=== PATIENT | female | born 1960 | race Caucasian/White ===

== ENCOUNTER 2017-03-24 12:34 | Observation (INO) | payer OTHER ==
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
[2017-03-24] MEDS ORDERED: ONDANSETRON 4 MG/2 ML VIAL IVP ONE ×2 (12:58→13:35)
[2017-03-24] MEDS ORDERED: fentaNYL 100 MCG/2 ML INJ IVP ONE (12:58)
[2017-03-24] MEDS ORDERED: NS 1,000 ML IV ONE ×2 (12:58→13:09)
[2017-03-24] MEDS ORDERED: fentaNYL 100 MCG/2 ML INJ ONE (12:59)
[2017-03-24] MEDS ORDERED: ONDANSETRON 4 MG/2 ML VIAL ONE (12:59)
[2017-03-24 13:52] LABS: % IMMATURE GRANULYOCYTES 1.8 % (0.0-1.1); ABSOLUTE IMMATURE GRANULOCYTES 0.29 10^3/uL (0.00-0.10); ADD DIFF? NO; ADD MORPH? NO; ADD SCAN? NO; ATYPICAL LYMPHOCYTE FLAG 0 (0-99); FRAGMENT RBC FLAG 0 (0-99); HEMATOCRIT 34.3 % (38.0-47.0); HEMOGLOBIN 11.5 g/dL (12.6-16.3); LEFT SHIFT FLG 10 (0-99); LIPEMIA HEMOLYSIS FLAG 80 (0-99); MEAN CELL HEMOGLOBIN 29.9 pg (27.9-34.1); MEAN CELL HEMOGLOBIN CONCENTR. 33.5 g/dL (32.4-36.7); MEAN CELL VOLUME 89.3 fL (81.5-99.8); MEAN PLATELET VOLUME 9.9 fL (8.7-11.7); PLATELET CLUMPS FLAG 0 (0-99); PLATELET COUNT 245 10^3/uL (150-400); RED BLOOD CELL COUNT 3.84 10^6/uL (4.18-5.33); RED CELL DISTRIBUTION WIDTH 14.3 % (11.5-15.2)
[2017-03-24] MEDS ORDERED: PROMETHAZINE HCL 25 MG/ML INJ IVP ONE (14:04)
[2017-03-24] MEDS ORDERED: IOPAMIDOL (ISOVUE-300) 100 ML BTL ONE (14:07)
[2017-03-24 14:14] LABS: APTT 22.8 SEC (23.0-38.0); INR 1.14 (0.83-1.16); PROTIME(PATIENT) 14.5 SEC (12.0-15.0)
[2017-03-24 14:24] LABS: ANION GAP 11 mEq/L (8-16); CALCIUM 8.3 mg/dL (8.5-10.4); CARBON DIOXIDE 21 mEq/l (22-31); CHLORIDE 109 mEq/L (97-110); CREATININE 0.8 mg/dL (0.6-1.0); GLOMERULAR FILTRATION RATE > 60; GLUCOSE 149 mg/dL (70-100); POTASSIUM 3.2 mEq/L (3.5-5.2); SODIUM 141 mEq/L (134-144)
[2017-03-24] MEDS ORDERED: LET GEL TOPICAL 1 EA SYR TP ONE ×2 (14:55→15:02)
[2017-03-24] MEDS ORDERED: KETOROLAC 15 MG/1 ML SDV IVP ONE (16:18)
[2017-03-24] MEDS ORDERED: KETOROLAC 15 MG/1 ML SDV ONE (16:18)
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
[2017-03-24] MEDS ORDERED: ONDANSETRON DISINTEGRATING 4 MG TAB PO PRN (19:47)
[2017-03-24] MEDS ORDERED: ONDANSETRON 4 MG/2 ML VIAL IVP PRN (19:47)
[2017-03-24] MEDS ORDERED: D5W 1/2 NS 1,000 ML IV SCH (20:00)
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
[2017-03-24] MEDS: ACETAMINOPHEN 325 MG TAB PO PRN (22:03)
[2017-03-25] MEDS: ACETAMINOPHEN 325 MG TAB PO PRN ×2 (04:38→10:41)
[2017-03-25] MEDS: HYDROCODONE/APAP 5/325 TAB PO PRN ×3 (04:39→16:27)
[2017-03-25 05:39] LABS: % IMMATURE GRANULYOCYTES 0.4 % (0.0-1.1); ABSOLUTE IMMATURE GRANULOCYTES 0.04 10^3/uL (0.00-0.10); ADD DIFF? NO; ADD MORPH? NO; ADD SCAN? NO; ATYPICAL LYMPHOCYTE FLAG 0 (0-99); FRAGMENT RBC FLAG 0 (0-99); HEMATOCRIT 34.7 % (38.0-47.0); HEMOGLOBIN 11.6 g/dL (12.6-16.3); LEFT SHIFT FLG 10 (0-99); LIPEMIA HEMOLYSIS FLAG 80 (0-99); MEAN CELL HEMOGLOBIN 30.2 pg (27.9-34.1); MEAN CELL HEMOGLOBIN CONCENTR. 33.4 g/dL (32.4-36.7); MEAN CELL VOLUME 90.4 fL (81.5-99.8); MEAN PLATELET VOLUME 10.5 fL (8.7-11.7); PLATELET CLUMPS FLAG 20 (0-99); PLATELET COUNT 233 10^3/uL (150-400); RED BLOOD CELL COUNT 3.84 10^6/uL (4.18-5.33); RED CELL DISTRIBUTION WIDTH 14.6 % (11.5-15.2)
[2017-03-25 07:17] LABS: ANION GAP 11 mEq/L (8-16); CALCIUM 8.8 mg/dL (8.5-10.4); CARBON DIOXIDE 18 mEq/l (22-31); CHLORIDE 109 mEq/L (97-110); CREATININE 0.8 mg/dL (0.6-1.0); GLOMERULAR FILTRATION RATE > 60; GLUCOSE 76 mg/dL (70-100); POTASSIUM 4.5 mEq/L (3.5-5.2); SODIUM 138 mEq/L (134-144)
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
[2017-03-25] MEDS ORDERED: IBUPROFEN 600 MG TAB PO PRN (11:53)
[2017-03-25] MEDS ORDERED: SENNOSIDES/DOCUSATE SODIUM TAB PO SCH (12:00)
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
[2017-03-25] MEDS ORDERED: TETANUS, DIPHTHERIA TOX (7YR+) 0.5 ML INJ IM ONE (12:07)
[2017-03-25 16:09] VITALS: BP 101/73; PULSE 61; RESP 14; TEMP 98.4; O2SAT 92
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
[2017-03-25] MEDS ORDERED: BACITRACIN ZINC 14.2 GM OINTTUBE TP ONE (16:28)
== END 2017-03-25 17:09 | disposition home or self-care (01) ==
LOC: EDUNIT# → EDBD → F3N 18:42
PROVIDERS: ADMIT Surgery; ATTEND Surgery
DX: S02.19XA Other fracture of base of skull, initial encounter for closed fracture (principal); S06.0X1A Concussion with loss of consciousness of 30 minutes or less, initial encounter; S12.391A Other nondisplaced fracture of fourth cervical vertebra, initial encounter for closed fracture; S12.491A Other nondisplaced fracture of fifth cervical vertebra, initial encounter for closed fracture; S62.653A Nondisplaced fracture of middle phalanx of left middle finger, initial encounter for closed fracture; S27.322A Contusion of lung, bilateral, initial encounter; S00.81XA Abrasion of other part of head, initial encounter; Y93.55 Activity, bike riding; V18.0XXA Pedal cycle driver injured in noncollision transport accident in nontraffic accident, initial encounter; Y92.410 Unspecified street and highway as the place of occurrence of the external cause; Y99.8 Other external cause status; R91.1 Solitary pulmonary nodule; Z88.0 Allergy status to penicillin; Z90.49 Acquired absence of other specified parts of digestive tract; Z98.84 Bariatric surgery status; Z23 Encounter for immunization
CPT/HCPCS: 70450; 71010; 71260; 72125; 72141; 72146; 73080; 73130; 73564; 74177; 90471; 92523; 96361; 96374; 96375; 97162; 97166; 99285; G0378; J1885; J2405; J2550; J3010; L0120; Q9967

== ENCOUNTER → 2017-04-22 | Outpatient (CLI) | payer OTHER | LOC: FIMAGING 15:09 | PROVIDERS: ATTEND Physician Assistant Surgical | DX: S13.4XXD Sprain of ligaments of cervical spine, subsequent encounter (principal); S12.391A Other nondisplaced fracture of fourth cervical vertebra, initial encounter for closed fracture; S12.491A Other nondisplaced fracture of fifth cervical vertebra, initial encounter for closed fracture; S22.078A Other fracture of T9-T10 vertebra, initial encounter for closed fracture ==

== ENCOUNTER → 2017-04-24 | Outpatient (CLI) | payer OTHER | LOC: FIMAGING 10:24 | PROVIDERS: ATTEND Nurse Practitioner Family | DX: I82.612 Acute embolism and thrombosis of superficial veins of left upper extremity (principal) | CPT/HCPCS: 76882-PO; 93971-PO ==

== ENCOUNTER → 2017-05-19 | Outpatient (CLI) | payer OTHER | LOC: EDSTATUS 10:39 → FIMAGING 15:30 | PROVIDERS: ATTEND Physician Assistant Surgical | DX: M50.322 Other cervical disc degeneration at C5-C6 level (principal) ==

== ENCOUNTER → 2018-10-28 | Outpatient (CLI) | payer OTHER | LOC: FIMAGING 14:50 | PROVIDERS: ATTEND Midwife | DX: Z12.31 Encounter for screening mammogram for malignant neoplasm of breast (principal) ==